=== PATIENT | male | born 1985 | race Caucasian/White ===

== ENCOUNTER 2016-10-30 12:46 | Emergency (ER) | payer SELFPAY ==
[~2016-10-30] VITALS: Ht 182.9 cm; Wt 78.0 kg
[~2016-10-30 12:46] MED LIST: ANUS25SU RECTAL; COLA100C3 PO; LIDO4CRE5 RECTAL
[2016-10-30 12:48] VITALS: BP 139/98; PULSE 89; RESP 17; TEMP 98.3; O2SAT 98
--- NOTE | 2016-10-30 12:53 | PD ---
Physical Exam Date Seen by Provider: Oct 30, 2016 Time Seen by Provider: 12:50 Narrative Pt is a 31 year old male, IVDU presenting to the Ed with c/o right ankle swelling. Pt reports injecting Bessy yesterday. Pt reports the pain in his ankle is a 6/10, tender to walk on. Pt appears altered but denies any drug use today. He states he just woke up. VSS, transferred to medical bed. Data Data Last Documented VS Vital Signs Date Time Temp Pulse Resp B/P Pulse Ox O2 Delivery O2 Flow Rate FiO2 10/30/16 12:48 98.3 89 17 139/98 98 MDM Supervised Visit with AUBRIE: Vanna Villalobos Oct 30, 2016 12:53
[2016-10-30] MEDS ORDERED: CLINDAMYCIN INJ 600 MG in SODIUM CHLORIDE 0.9% INJ 100 ML IV ONE (13:15)
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
[2016-10-30 13:26] LABS: AUTOMATED NEUTROPHIL # 7.2 TH/MM3 (1.8-7.7); BASOPHIL # 0.1 TH/MM3 (0-0.2); BASOPHIL % 0.8 % (0.0-2.0); EOSINOPHIL % 0.5 % (0.0-4.0); HEMATOCRIT 39.9 % (39.0-51.0); HEMO FLAGS DIFF FINAL; LYMPH % 21.5 % (9.0-44.0); LYMPHOCYTE # 2.2 TH/MM3 (1.0-4.8); MEAN CELL VOLUME 84.7 FL (80.0-100.0); MEAN CORPUSCULAR HEMOGLOBIN 29.6 PG (27.0-34.0); MEAN CORPUSCULAR HGB CONC 34.9 % (32.0-36.0); MONO % 6.3 % (0.0-8.0); NEUT % 70.9 % (16.0-70.0); PLATELET COUNT 239 TH/MM3 (150-450); RED BLOOD COUNT 4.71 MIL/MM3 (4.50-5.90); RED CELL DISTRIBUTION WIDTH 13.2 % (11.6-17.2); WHITE BLOOD COUNT 10.1 TH/MM3 (4.0-11.0)
[2016-10-30 13:40] LABS: ANION GAP 9 MEQ/L (5-15); AST (GOT) 24 U/L (15-37); BICARBONATE 25.7 MEQ/L (21.0-32.0); BLOOD UREA NITROGEN 21 MG/DL (7-18); CHLORIDE 104 MEQ/L (98-107); GLOMERULAR FILTRATION RATE 109 ML/MIN (>89); POTASSIUM 3.8 MEQ/L (3.5-5.1); SODIUM (NA) 139 MEQ/L (136-145)
[2016-10-30 13:43] LABS: ALKALINE PHOSPHATASE 139 U/L (45-117); ALT (GPT) 50 U/L (12-78); TOTAL BILIRUBIN ADULT 0.7 MG/DL (0.2-1.0)
--- NOTE | 2016-10-30 14:05 | RADRPT ---
EXAM DATE/TIME: 10/30/2016 13:30 [facility] COMPARISON: No previous studies available for comparison. INDICATIONS : Right ankle pain, several bug bites, no known trauma. MEDICAL HISTORY : Hepatitis C. Gastroesophageal reflux disease. Smoker. SURGICAL HISTORY : None. ENCOUNTER: Initial ACUITY: 1 day PAIN SCORE: 5/10 LOCATION: Right medial ankle. FINDINGS: Three view exam was performed of the right ankle. The bony structures are in normal alignment. No e vidence of extra dislocation. There is soft tissue swelling over the lateral malleolus. The ankle mor tise is intact. No radiopaque foreign bodies are seen. Bony mineralization is normal. CONCLUSION: Soft tissue swelling with no acute fracture or malalignment. Eddie Avila MD on October 30, 2016 at 13:52 Board Certified Radiologist. This report was verified electronically.
[2016-10-30] MEDS ORDERED: NAPR500 PO (14:37)
[2016-10-30] MEDS ORDERED: CLIN1CAP6 PO (14:37)
[2016-10-30 15:54] VITALS: BP 150/72; PULSE 79; RESP 18; O2SAT 99
== END 2016-10-30 17:34 | disposition home or self-care (01) ==
LOC: NEPE 12:46 → NEDAMB 17:34
DX: L03.115 Cellulitis of right lower limb (principal); B96.89 Other specified bacterial agents as the cause of diseases classified elsewhere
CPT/HCPCS: 73610; 80053; 85025; 86140; 87040; 87205; 96365